=== PATIENT | male | born 1955 | race Caucasian/White ===

== ENCOUNTER 2021-08-23 18:51 | Emergency (ER) | payer BC ==
[2021-08-23 19:04] VITALS: BP 145/103; PULSE 68; TEMP 97.8; BMI 29.7
== END 2021-08-23 20:04 | disposition home or self-care (01) ==
LOC: JER 18:51 → JERFT 18:51
PROC: 0HQ0XZZ Repair Scalp Skin, External Approach (ICD-10-PCS; principal; 2021-08-23)
DX: S01.01XA Laceration without foreign body of scalp, initial encounter (principal); W26.8XXA Contact with other sharp object(s), not elsewhere classified, initial encounter
CPT/HCPCS: 99282-25